=== PATIENT | male | born 1950 | race Caucasian/White ===

== ENCOUNTER 2016-07-28 20:41 | Emergency (ER) | payer OTHER, MEDICARE ==
[2016-07-28 20:51] VITALS: PULSE 63; RESP 16
[2016-07-28] MEDS ORDERED: TDAP ADULT 0.5 ML INJ (BOOSTRIX) IM ONE (21:04)
[2016-07-28] MEDS ORDERED: AMOXICILLIN/CLAVULANATE POT 875/125 MG TAB PO ONE (21:05)
[2016-07-28] MEDS ORDERED: RABIES IMMUNE GLOBULIN 300 UNIT/2 ML VIAL IM ONE (21:27)
[2016-07-28] MEDS ORDERED: RABIES VACC, HUMAN DIPLOID/PF 2.5 UNIT VIAL (RABAVERT) IM ONE (21:27)
--- NOTE | 2016-07-28 22:32 | EDPHY ---
H & P Stated Complaint: L 5th finger injury d/t dog or raccoon HPI/ROS: Chief complaint: Animal bites to left hand History of present illness: This is a 66-year-old male who presents to the emergency department for evaluation and treatment of animal bite to his left hand. Patient was walking his daughter's dog when it got into a fight with a raccoon. He attempted to break up the fight and believes he was bit at that time. He is not sure if it was the dog or raccoon that bit him although he thinks it was likely the raccoon. He has noted wounds to his left 4th and 5th digits. Minimal pain and bleeding. He is still moving the digits well. He denies other associated signs or symptoms. He is unsure of his last tetanus shot. - Personal History Current Tetanus/Diphtheria Vaccine: Unsure Tetanus Vaccine Date: unsure - Medical/Surgical History Hx Asthma: No Hx Chronic Respiratory Disease: No Hx Diabetes: No Hx Cardiac Disease: Yes Hx Renal Disease: No Hx Cirrhosis: No Hx Alcoholism: No Hx HIV/AIDS: No Hx Splenectomy or Spleen Trauma: No Other PMH: PSHx: neck, R shoulder, cardiac stents x 3. R thumb. PMHx: cardiac - Physical Exam Exam: General Appearance: Alert, nontoxic. Eyes: Pupils equal and round no injection. Respiratory: Chest is nontender, lungs are clear to auscultation. Cardiac: regular rate and rhythm. Gastrointestinal: Abdomen is soft and nontender, no masses, bowel sounds normal. Musculoskeletal: Patient is moving the digits of the left hand without difficulty Skin: Small wounds to the flexor surface of the left 4th and 5th fingers Neurological: Alert and oriented x4. Strength and sensation intact and symmetrical including in the left hand. Constitutional: Initial Vital Signs Heart Rate 63 07/28/16 20:46 Respiratory Rate 16 07/28/16 20:46 Blood Pressure 146/77 H 07/28/16 20:46 O2 Sat (%) 93 07/28/16 20:46 O2 Delivery Mode Room Air Allergies/Adverse Reactions: Penicillins Allergy (Verified 04/27/11 09:33) Rash BEE STING Allergy (Uncoded 04/27/11 09:33) Home Medications: Medication Instructions Recorded Aspirin [Aspirin 81mg (OTC)] 162 mg PO DAILY18 11/12/11 Cholecalciferol (Vitamin D3) 1,000 unit PO DAILY18 11/12/11 [Vitamin D] Clopidogrel Bisulfate [Plavix (RX)] 75 mg PO DAILY18 11/12/11 Pharmacy Completed 11/12/11 11/12/11 Rosuvastatin Calcium [Crestor 40mg 40 mg PO DAILY18 11/12/11 (RX)] Ubidecarenone [Co Q-10] 100 mg PO DAILY18 11/12/11 Amoxicillin/Clavulanate Pot 875 mg PO BID 5 Days 07/28/16 [Augmentin 875 MG TAB (*)] Medical Decision Making Procedures: Wounds are cleaned with soap and water ED Course/Re-evaluation: Patient seen under the supervision of my primary supervising physician Dr. Britany Guzman. Patient presents to the emergency department after breaking up a fight between his dog and a raccoon. He believes he was bit on the left hand by the raccoon. Patient is nontoxic. These are superficial wounds and his fingers are neurovascularly intact and he has good musculoskeletal control of them. I have consulted with Infectious Disease, Dr. Pak. She does recommend rabies prophylaxis, updating his tetanus and starting him on Augmentin. She has taken his contact information and will have her staff contact him next week to help arrange follow-up for the full rabies series. Patient's tetanus is updated. He is given his 1st dose of Augmentin here. I have infiltrated rabies immunoglobulin around the wounds and the rest are given to him intramuscularly. He is also given the rabies vaccination. He does have a listed penicillin allergy, he states this is a rash. He states he has had amoxicillin and Augmentin before without problems. He understands the importance of following up with either this emergency department or infectious disease to receive his full rabies vaccination series. Home care is discussed. Return precautions are given. Differential Diagnosis: Included but not limited to abrasion, animal bite, rabies exposure - Data Points Medications Given: Discontinued Medications Amoxicillin/Clavulanate Potassium (Augmentin 875mg) 875 mg PO EDNOW ONE PRN Reason: Protocol Stop: 07/28/16 21:06 Last Admin: 07/28/16 21:13 Dose: 875 mg Diphtheria/Tetanus/Acell Pertussis (Boostrix) 0.5 ml IM .ONCE ONE Stop: 07/28/16 21:05 Last Admin: 07/28/16 21:13 Dose: 0.5 ml Rabies Immune Globulin (Imogam Rabies Ht 2ml) 1,720 unit IM .ONCE ONE Stop: 07/28/16 21:28 Last Admin: 07/28/16 22:52 Dose: 1,720 unit Rabies Vaccine Human Diploid Cell (Rabavert) 2.5 unit IM .ONCE ONE Stop: 07/28/16 21:28 Last Admin: 07/28/16 22:51 Dose: 2.5 unit Departure - Departure Disposition: Home, Routine, Self-Care Clinical Impression: Animal bite Condition: Good Instructions: Rabies Vaccine (By injection), Rabies Immune Globulin (By injection), Animal Bite (ED), Rabies (ED) Additional Instructions: Please follow-up with Infectious Disease for continued evaluation and care You received rabies immunoglobulin tonight You received the rabies vaccination tonight, you will need additional vaccinations on day 3, 7 and 14 (3, and 08/11) you can follow up with Infectious Disease or this ER to receive these Your tetanus was updated tonight Take antibiotics as prescribed If symptoms worsen or new symptoms develop return to the emergency department for recheck Referrals: Tommy Fuentes MD [Primary Care Provider] - As per Instructions Prescriptions: Amoxicillin/Clavulanate Pot [Augmentin 875 MG TAB (*)] 875 mg PO BID 5 Days
[2016-07-28 23:12] VITALS: BP 144/78; O2SAT 94
== END 2016-07-28 23:12 | disposition home or self-care (01) ==
DX: S61.255A Open bite of left ring finger without damage to nail, initial encounter (principal); S61.257A Open bite of left little finger without damage to nail, initial encounter; Z23 Encounter for immunization; Z79.82 Long term (current) use of aspirin; Z95.5 Presence of coronary angioplasty implant and graft; W54.0XXA Bitten by dog, initial encounter; Y99.8 Other external cause status; Y93.01 Activity, walking, marching and hiking

== ENCOUNTER → 2018-09-01 | Outpatient (CLI) | payer OTHER, MEDICARE | LOC: BHFA 08:30 | PROVIDERS: ATTEND Internal Medicine Cardiovascular Disease | DX: I25.10 Atherosclerotic heart disease of native coronary artery without angina pectoris (principal) ==